=== PATIENT | female | born 1945 | race Caucasian/White ===

== ENCOUNTER 2016-09-18 16:10 | Emergency (ER) | payer MEDICARE ==
[~2016-09-18] VITALS: Ht 152.4 cm; Wt 90.0 kg
[2016-09-18 16:13] VITALS: BP 138/72; PULSE 107; RESP 16; TEMP 97.9; O2SAT 98
[2016-09-18] MEDS ORDERED: AMLO10TA2 PO (17:53)
[2016-09-18] MEDS ORDERED: METF500T PO (17:53)
[2016-09-18] MEDS ORDERED: VALS320T4 PO (17:53)
[2016-09-18] MEDS ORDERED: GABA800T PO (17:53)
[2016-09-18 18:53] LABS: AUTOMATED NEUTROPHIL # 5.7 TH/MM3 (1.8-7.7); BASOPHIL # 0.1 TH/MM3 (0-0.2); BASOPHIL % 0.8 % (0.0-2.0); EOSINOPHIL # 0.3 TH/MM3 (0-0.4); EOSINOPHIL % 3.4 % (0.0-4.0); HEMATOCRIT 36.5 % (35.0-46.0); HEMO FLAGS DIFF FINAL; LYMPH % 21.1 % (9.0-44.0); LYMPHOCYTE # 1.8 TH/MM3 (1.0-4.8); MEAN CELL VOLUME 89.2 FL (80.0-100.0); MEAN CORPUSCULAR HEMOGLOBIN 30.8 PG (27.0-34.0); MEAN CORPUSCULAR HGB CONC 34.5 % (32.0-36.0); MONO % 8.3 % (0.0-8.0); NEUT % 66.4 % (16.0-70.0); PLATELET COUNT 353 TH/MM3 (150-450); RED BLOOD COUNT 4.09 MIL/MM3 (4.00-5.30); RED CELL DISTRIBUTION WIDTH 12.9 % (11.6-17.2); WHITE BLOOD COUNT 8.6 TH/MM3 (4.0-11.0)
[2016-09-18 19:15] VITALS: BP 135/65; PULSE 91; RESP 16; TEMP 98.1; O2SAT 99
[2016-09-18 19:20] LABS: ALKALINE PHOSPHATASE 130 U/L (45-117); ALT (GPT) 37 U/L (10-53); ANION GAP 5 MEQ/L (5-15); AST (GOT) 29 U/L (15-37); BICARBONATE 29.9 MEQ/L (21.0-32.0); BLOOD UREA NITROGEN 21 MG/DL (7-18); CHLORIDE 106 MEQ/L (98-107); GLOMERULAR FILTRATION RATE 51 ML/MIN (>89); POTASSIUM 4.1 MEQ/L (3.5-5.1); SODIUM (NA) 141 MEQ/L (136-145); TOTAL BILIRUBIN ADULT 0.2 MG/DL (0.2-1.0)
--- NOTE | 2016-09-18 20:21 | PD ---
HPI Chief Complaint: Edema Time Seen by Provider: 17:49 Travel History International Travel<30 days: No Contact w/Intl Traveler<30days: No Traveled to known affect area: No History of Present Illness HPI C/O 1 MONTH HISTORY OF RIGHT FOOT ANKLE SWELLING, (ENGLISH SPEAKING) DENIES ACTUAL PAIN OR DISCOMFORT JUST NOTED EDEMA. PT ALSO DENIES ANY REDNESS TO SKIN OVER SWOLLEN AREA. PFSH Past Medical History Anemia: Yes Cardiovascular Problems: Yes (DENIES ) Diabetes: Yes Patient Takes Glucophage: Yes Diminished Hearing: No Tetanus Vaccination: > 5 Years Influenza Vaccination: No ?: Not Past Surgical History Hysterectomy: Yes Social History Alcohol Use: No Tobacco Use: No Substance Use: No Allergies-Medications (Allergen,Severity, Reaction): Coded Allergies: No Known Allergies (Unverified , 09/18/16) Reported Meds & Prescriptions Reported Meds & Active Scripts Active Reported Valsartan-Hydrochlorothiazide 320-12.5 Mg Tab 1 Tab PO DAILY Metformin (Metformin HCl) 500 Mg Tab 500 Mg PO DAILY With a meal Gabapentin 800 Mg Tab 800 Mg PO BID Amlodipine (Amlodipine Besylate) 10 Mg Tab 10 Mg PO DAILY Review of Systems Except as stated in HPI: all other systems reviewed are Neg Cardiovascular: Positive: Edema Physical Exam Narrative GENERAL: SKIN: Warm and dry. HEAD: Atraumatic. Normocephalic. EYES: Pupils equal and round. No scleral icterus. No injection or drainage. ENT: No nasal bleeding or discharge. Mucous membranes pink and moist. NECK: Trachea midline. No JVD. CARDIOVASCULAR: Regular rate and rhythm. RESPIRATORY: No accessory muscle use. Clear to auscultation. Breath sounds equal bilaterally. GASTROINTESTINAL: Abdomen soft, non-tender, nondistended. Hepatic and splenic margins not palpable. MUSCULOSKELETAL: Extremities without clubbing, cyanosis, or RIGHT DORSUM OF FOOT AND DISTAL TIB EDEMA 2+ NONPITTING. No obvious deformities. NEUROLOGICAL: Awake and alert. No obvious cranial nerve deficits. Motor grossly within normal limits. Five out of 5 muscle strength in the arms and legs. Normal speech. PSYCHIATRIC: Appropriate mood and affect; insight and judgment normal. Data Data Last Documented VS Vital Signs Date Time Temp Pulse Resp B/P Pulse Ox O2 Delivery O2 Flow Rate FiO2 09/18/16 19:15 98.1 91 16 135/65 99 Room Air Orders Complete Blood Count With Diff (09/18/16 18:11) Comprehensive Metabolic Panel (09/18/16 18:11) B-Type Natriuretic Peptide (09/18/16 18:11) Thyroid Stimulating Hormone (09/18/16 18:11) Iv Access Insert/Monitor (09/18/16 18:11) Ecg Monitoring (09/18/16 18:11) Us Leg Venous Doppler (09/18/16 ) Labs Laboratory Tests Test 09/18/16 18:26 White Blood Count 8.6 TH/MM3 Red Blood Count 4.09 MIL/MM3 Hemoglobin 12.6 GM/DL Hematocrit 36.5 % Mean Corpuscular Volume 89.2 FL Mean Corpuscular Hemoglobin 30.8 PG Mean Corpuscular Hemoglobin 34.5 % Concent Red Cell Distribution Width 12.9 % Platelet Count 353 TH/MM3 Mean Platelet Volume 9.1 FL Neutrophils (%) (Auto) 66.4 % Lymphocytes (%) (Auto) 21.1 % Monocytes (%) (Auto) 8.3 % Eosinophils (%) (Auto) 3.4 % Basophils (%) (Auto) 0.8 % Neutrophils # (Auto) 5.7 TH/MM3 Lymphocytes # (Auto) 1.8 TH/MM3 Monocytes # (Auto) 0.7 TH/MM3 Eosinophils # (Auto) 0.3 TH/MM3 Basophils # (Auto) 0.1 TH/MM3 CBC Comment DIFF FINAL Differential Comment Sodium Level 141 MEQ/L Potassium Level 4.1 MEQ/L Chloride Level 106 MEQ/L Carbon Dioxide Level 29.9 MEQ/L Anion Gap 5 MEQ/L Blood Urea Nitrogen 21 MG/DL Creatinine 1.06 MG/DL Estimat Glomerular Filtration 51 ML/MIN Rate Random Glucose 99 MG/DL Calcium Level 9.5 MG/DL Total Bilirubin 0.2 MG/DL Aspartate Amino Transf 29 U/L (AST/SGOT) Alanine Aminotransferase 37 U/L (ALT/SGPT) Alkaline Phosphatase 130 U/L B-Type Natriuretic Peptide 26 PG/ML Total Protein 8.1 GM/DL Albumin 3.5 GM/DL Thyroid Stimulating Hormone 2.610 uIU/ML 3rd Gen [facility] Medical Decision Making Medical Screen Exam Complete: Yes Emergency Medical Condition: Yes Medical Record Reviewed: Yes Differential Diagnosis PERIPHERAL EDEMA V DVT V HYPOTHYROIDISM Narrative Course AFTER EVALUATION NO EVIDENCE OF RENAL/LIVER FAILURE NOR HYPOTHYROIDISM TO EXPLAIN FOR SWELLING, NO DVT ON ULTRASOUND. Diagnosis Primary Impression: RIGHT UNILATERAL PERIPHERAL EDEMA Disposition: 01 DISCHARGE HOME Condition: Stable Hilario Johnston MD Sep 18, 2016 20:21
--- NOTE | 2016-09-18 20:33 | RADRPT ---
EXAM DATE/TIME: 09/18/2016 19:55 [facility] COMPARISON: No previous studies available for comparison. INDICATIONS : Right leg edema. MEDICAL HISTORY : Diabetes. Anemia. Cardiac disorder. Right leg edema. SURGICAL HISTORY : Hysterectomy. ENCOUNTER: Initial ACUITY: 1 month PAIN SCORE: 0/10 LOCATION: Right leg. TECHNIQUE: Venous ultrasound of the leg was performed from the inguinal ligament to the proximal calf. Real-ale e, color Doppler and spectral tracing, compression and augmentation techniques were used. FINDINGS: There is normal compressibility of the deep venous system from the inguinal region to the proximal ca lf. No echogenic clot is seen in the lumen of the common femoral, femoral, popliteal, and posterior tibial veins. There is a normal response of the venous system to proximal and distal augmentation an d respiration. CONCLUSION: Normal examination. Miguel Zaldivar MD on September 18, 2016 at 20:31 Board Certified Radiologist. This report was verified electronically.
== END 2016-09-18 21:37 | disposition home or self-care (01) ==
LOC: NEPD 16:10
DX: R60.0 Localized edema (principal); E11.9 Type 2 diabetes mellitus without complications; Z79.84 Long term (current) use of oral hypoglycemic drugs
CPT/HCPCS: 80053; 83880; 84443; 85025; 93971